=== PATIENT | female | born 1980 | race Caucasian/White ===

== ENCOUNTER 2017-04-23 07:18 | Emergency (ER) | payer OTHER ==
--- NOTE | ~2017-04-23 | CT4 ---
[facility] of [facility] RADIOLOGY TEXT RESULTS PATIENT: ROSALVA MUNIZ LOCATION: [facility] : 76 UNIT #: [id number] AGE: [address]: Christal Goodson MD SEX: F ORDER DR: [id number] [facility] [address] [place], [place] [address] [id number] MR#: [id number] Acc #: [id number] NAME: ROSALVA MUNIZ. : 1980 SEX: F STUDY DATE/TIME: 04/23/2017 09:12 UNIT: [facility] ROOM: STUDY DESCRIPTION: CT Abd and Pelv Wo Cont Attending Physician: Christal Goodson M.D. Ordering Physician: Ed Doctor [id number] [facility] Primary Care Physician: [facility] IMAGING REPORT This report is preliminary unless electronic signature is present EXAM CT abdomen pelvis without contrast, 04/23/2017 09:12 hours HISTORY 36-year-old complaining of left flank pain with vomiting since last night. History of prior lithotripsy. COMPARISON CT abdomen, 05/07/2011 TECHNIQUE Helical noncontrasted images were obtained from the lung bases through the pubic symphysis. Sagittal and coronal reconstructions were performed. No contrast was administered. Total exam DLP 723 mGy-cm. This CT exam was performed with one or more of the following radiation dose reduction techniques: automatic exposure control, adjustment of mA and/or kV according to patient size, and iterative reconstruction. FINDINGS Images through the lung bases demonstrate mild emphysematous change. There is some linear density suggesting atelectasis or scar. There is a 3.0-4.0 mm well-circumscribed noncalcified nodule at the lateral left lung base on image 15 which is unchanged from 05/07/2011 and therefore benign. There are no suspicious densities. Images through the abdomen demonstrate mild diffuse low attenuation of the liver suggesting diffuse fatty infiltration. There is focal sparing adjacent to the gallbladder. There is no suspicious liver lesion. The spleen is normal. The pancreas, gallbladder and bile ducts are normal. The adrenal glands are normal. The right kidney demonstrates a 2.0-3.0 mm nonobstructing stone in the anterolateral mid kidney. There is no dilatation of the renal collecting system or ureter. No ureterectasis or STS. [facility] A Service of [facility] RADIOLOGY TEXT RESULTS PATIENT: ROSALVA MUNIZ LOCATION: [facility] : 76 UNIT #: [id number] AGE: [address]: Christal Goodson MD SEX: F ORDER DR: stone. The left kidney is abnormal. It is enlarged relative to the right and contains multiple nonobstructing intrarenal calculi in the upper pole measuring up to 3.0 mm. There is moderate pelvocaliectasis, left ureterectasis and stranding around the left kidney and renal pelvis and upper ureter consistent with a high-grade obstruction. There is a stone within the mid pelvis on the left measuring 6.0 mm x 7.0 mm. This lies in the distal ureter approximately 4.5 cm above the left ureterovesical junction. The distal ureter distal to the stone is decompressed and the bladder is normal. The stomach is contracted but normal in appearance. There is no small bowel distension or small bowel wall thickening. The appendix is normal. The colon demonstrates uncomplicated diverticula in the transverse colon. The distal colon is normal. CT pelvis demonstrates a normal appearance to the uterus. There is a slightly dense cyst in the left ovary posteriorly measuring only 1.2 cm most likely physiologic either proteinaceous or a small high hemorrhagic cyst. This is unlikely to be the source of the patient's pain given the ureteral findings. IMPRESSION 1. There is a 6.0 x 7.0 mm distal left ureteral stone lying 4.5 cm cephalad to the left ureterovesical junction resulting in a moderately high-grade obstruction with dilatation of the left renal collecting system, left ureter and linear stranding around the left kidney, renal pelvis and upper ureter. 2. There are very small nonobstructing intrarenal calculi bilaterally. Urologic consultation is recommended. 3. Normal gallbladder, bile ducts and pancreas. Normal appendix. 4. Uncomplicated diverticula of the transverse colon. Diverticulosis without diverticulitis. 5. There is a benign 4.0 mm noncalcified nodule at the left lung base unchanged from [address] criteria for benignity. Dictated by... Yolis Ott M.D. THIS IS AN ELECTRONICALLY VERIFIED REPORT Yolis Ott M.D. at 04/23/2017 2:35 PM YAJAIRA/rob TD: 04/23/2017 10:29 JOB #: [id number] MEDICAL IMAGING REPORT Page 1 of 1 COPY
[~2017-04-23 07:18] MED LIST: ALBUTEROL 0.5ML INH; AMOXICILLIN PO; ANSAID100 MG PO; ANUSOL-HC CREAM30 GM TOP; BACTRIM DS TABL1 TA1 PO; BACTRIM DS TABL1 TA2 PO; BENTYL10 MG PO; CIPRO PO; ERYTHROMYCIN B500 MG PO; FLOMAX0.4 M1 PO; FLOMAX0.4 MG PO; IBUPROFEN PO; IBUPROFEN600 MG; IBUPROFEN800 MG PO; LORTAB 5/500 TA1 TA1 PO; MOTRIN600 M2 PO; NO MEDICATIONS; NORCO 5/325 TAB1 TAB PO; PHENERGAN PO; PHENERGAN25 MG PO; PRINIVIL40 MG PO; PYRIDIUM PO; TYLOX 5/500 CAP1 CAP PO; VICODIN 5/500 T1 TAB PO; ZITHROMAX1 G/PKT PO; ZOFRAN ODT4 MG PO
[2017-04-23 09:21] LABS: BASOPHIL# 0.1 X10e3 (0-0.3); BASOPHIL% 0.4 % (0-2.5); DIFF IND YES; EOSINOPHIL# 0.1 X10e3 (0-0.7); EOSINOPHIL% 0.6 % (0.0-7.0); HEMOGLOBIN 15.4 gm/dL (12.0-16.0); LYMPHOCYTE# 2.9 X10e3 (1.0-3.5); LYMPHOCYTE% 13.9 % (17.0-45.0); MEAN CELL VOLUME 88.7 FL (83-96); MEAN CORPUSCULAR HEMOGLOBIN 29.7 PG (28-34); MEAN CORPUSCULAR HGB CONC 33.5 g/dL (30-36); MEAN PLATELET VOLUME 8.9 FL (6.5-11.5); MONOCYTE# 1.5 X10e3 (0-1.0); MONOCYTE% 7.3 % (3.0-12.0); NEUTROPHIL% 77.8 % (40-75); PLATELET COUNT 239 X10e3 (140-420); RED BLOOD COUNT 5.19 X10e (3.90-5.30); RED CELL DISTRIBUTION WIDTH 13.4 % (11.0-15.5); WHITE BLOOD COUNT 20.6 X10e3 (4.0-10.5)
[2017-04-23 09:22] LABS: URINE SOURCE CLEAN CATCH
[2017-04-23 09:31] LABS: URINE APPEARANCE CLEAR; URINE BILIRUBIN NEG (NEG); URINE BLOOD 3+ (NEG); URINE COLOR YELLOW; URINE GLUCOSE NEG (NEG); URINE KETONE NEG (NEG); URINE LEUKOCYTE ESTERASE 2+ (NEG); URINE NITRATE NEG (NEG); URINE PROTEIN 2+ (NEG); URINE SPECIFIC GRAVITY 1.015 (1.003-1.035)
[2017-04-23 09:34] LABS: CULTURE INDICATED? YES; URINE BACTERIA AUWI 1+ (NEGATIVE); URINE SQUAMOUS EPITHELIAL CELL OCC /[HPF]; UWBCS1 AUWI 25-50 (0-5)
[2017-04-23 09:39] LABS: ALBUMIN SERUM 4.4 g/dL (3.5-5.0); BILIRUBIN,TOTAL 0.9 mg/dL (0.2-2.0); BUN/CREATININE RATIO 22.22; CALCIUM SERUM 9.2 mg/dL (8.4-10.2); CREATININE SERUM 0.9 mg/dL (0.6-1.4); GLOM FILT RATE Estimated 81.2 mL/min (>60); POTASSIUM 3.5 mmol/L (3.5-5.1); PROTEIN TOTAL SERUM 7.7 g/dL (6.0-8.3)
[2017-04-23 10:23] LABS: PLATELET ESTIMATE NORMAL (NORMAL)
== END 2017-04-23 11:47 | disposition home or self-care (01) ==
LOC: CED 07:18
PROVIDERS: Nurse Practitioner
DX: N20.1 Calculus of ureter (principal); D72.829 Elevated white blood cell count, unspecified; I10 Essential (primary) hypertension; J45.909 Unspecified asthma, uncomplicated; K21.9 Gastro-esophageal reflux disease without esophagitis; G43.909 Migraine, unspecified, not intractable, without status migrainosus; Z98.890 Other specified postprocedural states; F17.200 Nicotine dependence, unspecified, uncomplicated; Z88.0 Allergy status to penicillin
CPT/HCPCS: 36415; 74176; 80053; 81003; 83690; 84703; 85025; 87086; 96374; 96375; 99284; J1885; J2405